=== PATIENT | female | born 1995 | race Caucasian/White ===

== ENCOUNTER 2023-05-18 02:10 | Emergency (ER) | payer SELFPAY ==
[~2023-05-18] VITALS: Ht 157.5 cm; Wt 54.4 kg
[2023-05-18 02:10] VITALS: BP 120/72; PULSE 87; RESP 17; TEMP 97.7; O2SAT 97
--- NOTE | 2023-05-18 02:10 | NUR ---
TO CHAIR Whitley [facility]RA[facility] Addendum: 05/18/23 at 0228 by DILLON DOUG
[2023-05-18 02:41] VITALS: BP 120/72; PULSE 87; RESP 17; TEMP 97.7; O2SAT 97
--- NOTE | 2023-05-18 02:41 | NUR ---
Patient discharged with v/s stable. Written and verbal after care instructions given and explained. Patient verbalized understanding. Police with in custody. All questions addressed prior to discharge. Advised to follow up with PMD.
== END 2023-05-18 02:41 ==
LOC: MED 02:10
DX: Z04.1 Encounter for examination and observation following transport accident (principal); Z02.89 Encounter for other administrative examinations; V49.9XXA Car occupant (driver) (passenger) injured in unspecified traffic accident, initial encounter; Y93.89 Activity, other specified; Y92.89 Other specified places as the place of occurrence of the external cause; Y99.8 Other external cause status
CPT/HCPCS: 99283